=== PATIENT | female | born 1980 | race Caucasian/White ===

== ENCOUNTER 2017-03-19 14:09 | Emergency (ER) | payer OTHER ==
[~2017-03-19] VITALS: Ht 170.2 cm; Wt 85.3 kg
[~2017-03-19 14:09] MED LIST: BUTA1CAP29 PO; DIAZ2TAB PO; TRAZ100T12 PO
[2017-03-19 14:13] VITALS: BP 129/68
[2017-03-19 14:41] LABS: BILIRUBIN,URINE NEGATIVE (NEG); GLUCOSE,URINE 100 mg/dL (NEG); NITRITE,URINE NEGATIVE (NEG); PROTEIN,URINE 30 mg/dL (NEG-TRACE); UROBILINOGEN,URINE 0.2 mg/dL (0.2 mg/dL)
[2017-03-19 14:48] LABS: BACTERIA,URINE FEW /HPF (0-FEW); RBC,URINE 0 /HPF (0-2); SQUAMOUS EPITHELIAL CELL,UR MANY /LPF; WBC,URINE 0 /HPF (0-4)
[2017-03-19 14:56] LABS: OBC FLU VALID
[2017-03-19 14:58] LABS: NEGATIVE OBC STREP NEG; POSITIVE OBC STREP POS
--- NOTE | 2017-03-19 15:42 | PHYS DOC ---
Past Medical History Past Medical History: Migraines Past Surgical History: Appendectomy, Tonsillectomy, Other Additional Past Surgical Histo: D&C Additional Information: 3 cigarettes daily Alcohol Use: None Drug Use: None Adult General Chief Complaint Chief Complaint: FLU SYMPTOM HPI HPI Patient is a 36 year old female 7 para 6 who is currently 37 weeks and presents today for nasal congestion and itchy eyes and a sore throat that began 2 days ago. Patient states she was seen by the PEDIATRIC NP yesterday for the same. She states she was discharged with Zyrtec and Tylenol. She states it's not helping. Review of Systems Review of Systems Constitutional: Denies fever or chills [] Eyes: Itchy eyes HENT:nasal congestion Respiratory: Denies cough or shortness of breath [] Cardiovascular: No additional information not addressed in HPI [] GI: Denies abdominal pain, nausea, vomiting, bloody stools or diarrhea [] : Denies dysuria or hematuria [] Musculoskeletal: Denies back pain or joint pain [] Integument: Denies rash or skin lesions [] Neurologic: Denies headache, focal weakness or sensory changes [] Endocrine: Denies polyuria or polydipsia [] Allergies Allergies Allergies Coded Allergies Type Severity Reaction Last Updated Verified No Known Drug Allergies 12/10/13 No Physical Exam Physical Exam Constitutional: Well developed, well nourished, no acute distress, non-toxic appearance. [] HENT: Normocephalic, atraumatic, bilateral external ears normal, oropharynx moist, no oral exudates, nose normal. [] Eyes: PERRLA, EOMI, conjunctiva normal, no discharge. [] Neck: Normal range of motion, no tenderness, supple, no stridor. [] Cardiovascular:Heart rate regular rhythm, no murmur [] Lungs & Thorax: Bilateral breath sounds clear to auscultation [] Abdomen: Gravid abdomen. Bowel sounds normal, soft, no tenderness, no masses, no pulsatile masses. [] Skin: Warm, dry, no erythema, no rash. [] Back: No tenderness, no CVA tenderness. [] Extremities: No tenderness, no cyanosis, no clubbing, ROM intact, no edema. [] Neurologic: Alert and oriented X 3, normal motor function, normal sensory function, no focal deficits noted. [] Psychologic: Affect normal, judgement normal, mood normal. [] Current Patient Data Vital Signs Vital Signs Date Time Temp Pulse Resp B/P Pulse Ox O2 Delivery O2 Flow Rate FiO2 03/19/17 14:13 98.4 111 20 129/68 98 Room Air 98.4 Lab Values Laboratory Tests Test 03/19/17 14:20 03/19/17 14:26 Urine Collection Type Unknown Urine Color Yellow Urine Clarity Turbid Urine pH 6.0 Urine Specific Jewell 1.025 Urine Protein 30mg/dL (NEG-TRACE) Urine Glucose (UA) 100mg/dL (NEG) Urine Ketones (Stick) Negativemg/dL (NEG) Urine Blood Negative (NEG) Urine Nitrite Negative (NEG) Urine Bilirubin Negative (NEG) Urine Urobilinogen Dipstick 0.2mg/dL (0.2 mg/dL) Urine Leukocyte Esterase Trace (NEG) Urine RBC 0/HPF (0-2) Urine WBC 0/HPF (0-4) Urine Squamous Epithelial Cells Many/LPF Urine Bacteria Few/HPF (0-FEW) Group A Streptococcus Rapid Negative (NEGATIVE) Influenza Type A Antigen Negative (NEGATIVE) Influenza Type B Antigen Negative (NEGATIVE) EKG EKG [] Radiology/Procedures Radiology/Procedures [] Course & Med Decision Making Course & Med Decision Making Pertinent Labs and Imaging studies reviewed. (See chart for details) This is a 37 week female patient who presents today with symptoms consistent with upper respiratory infection as well as seasonal allergies. She was seen by the PEDIATRIC NP yesterday and was discharged with Zyrtec and Tylenol. She states her symptoms have not improved. Negative influenza A or B, negative rapid strep. Encouraged patient to continue using the Zyrtec and Tylenol. Humidifier recommended. Follow-up with primary care doctor or the PEDIATRIC NP in the next 3-7 days. Dragon Disclaimer Dragon Disclaimer This electronic medical record was generated, in whole or in part, using a voice recognition dictation system. Departure Departure Impression: Primary Impression: Seasonal allergies Additional Impression: Upper respiratory infection Disposition: HOME, SELF-CARE Condition: STABLE Referrals: MARIANGEL KNUTSON Jr, MD (PCP) Follow-up with the PEDIATRIC NP as soon as possible Patient Instructions: Allergic Rhinitis, Upper Respiratory Infection, Adult Additional Instructions: Please follow-up with your PEDIATRIC NP as soon as possible. Continue taking Zyrtec and Tylenol. Problem Qualifiers Primary Impression: Seasonal allergies Allergic rhinitis trigger: unspecified Qualified Code: J30.2 - Other seasonal allergic rhinitis Additional Impression: Upper respiratory infection URI type: unspecified URI Qualified Code: J06.9 - Acute upper respiratory infection, unspecified ALTON [employer] Mar 19, 2017 15:42
== END 2017-03-19 15:44 | disposition home or self-care (01) ==
LOC: ER 14:09
DX: O99.513 Diseases of the respiratory system complicating pregnancy, third trimester (principal); J30.2 Other seasonal allergic rhinitis; J06.9 Acute upper respiratory infection, unspecified; G43.909 Migraine, unspecified, not intractable, without status migrainosus; F17.210 Nicotine dependence, cigarettes, uncomplicated; H57.8 Other specified disorders of eye and adnexa; Z3A.37 37 weeks gestation of pregnancy
CPT/HCPCS: 81001; 87070; 87086; 87804; 87880; 99284

== ENCOUNTER 2017-03-23 20:09 | Observation (INO) | payer OTHER | END 2017-03-23 23:10 | disposition home or self-care (01) | LOC: 3 SO LND 20:09 | PROVIDERS: ADMIT Obstetrics & Gynecology; ATTEND Obstetrics & Gynecology | DX: O62.9 Abnormality of forces of labor, unspecified (principal); Z3A.37 37 weeks gestation of pregnancy | CPT/HCPCS: G0378; G0379 ==

== ENCOUNTER 2017-04-03 06:24 | Inpatient (IN) | payer OTHER ==
[~2017-04-03] VITALS: Ht 170.2 cm; Wt 86.3 kg
[2017-04-03] MEDS ORDERED: TERBUTALINE 1 MG/ML VIAL. SQ PRN (06:30)
[2017-04-03] MEDS ORDERED: LIDOCAINE 1% PF 30 ML VIAL. INJ PRN (06:30)
[2017-04-03] MEDS ORDERED: OXYTOCIN 30 UNIT/500 ML PREMIX 500 ML IV PRN ×3 (06:30→15:00)
[2017-04-03] MEDS ORDERED: fentaNYL PF VIAL 100 MCG/2 ML VIAL IV PRN (06:30)
[2017-04-03] MEDS ORDERED: IBUPROFEN 600 MG TABLET. PO PRN (06:30)
[2017-04-03] MEDS ORDERED: BUTORPHANOL 2 MG/ML VIAL. IV PRN (06:30)
[2017-04-03] MEDS ORDERED: 0.9 % SODIUM CHLORIDE 10 ML DISP.SYRIN. IV PRN ×2 (06:30→15:00)
[2017-04-03 06:47] VITALS: BP 108/61
[2017-04-03 07:04] LABS: BILIRUBIN,URINE NEGATIVE (NEG); GLUCOSE,URINE NEGATIVE (NEG); NITRITE,URINE NEGATIVE (NEG); PROTEIN,URINE NEGATIVE (NEG-TRACE); UROBILINOGEN,URINE 0.2 mg/dL (0.2 mg/dL)
[2017-04-03 07:18] LABS: BACTERIA,URINE MANY /HPF (0-FEW); RBC,URINE OCC /HPF (0-2); SQUAMOUS EPITHELIAL CELL,UR MANY /LPF
[2017-04-03 07:19] LABS: YEAST,URINE PRESENT /HPF
[2017-04-03] MEDS ORDERED: PENICILLIN G K 5,000,000 UNIT in IV NORMAL SALINE 100ML 100 ML IV ONE (07:30)
[2017-04-03] MEDS: IV RINGERS,LACTATED 1000ML 1,000 ML IV SCH ×2 (07:49→11:01)
[2017-04-03 08:27] LABS: BASO # 0.1 x10^3/uL (0.0-0.2); BASO % 1 % (0-3); EOS % 4 % (0-3); LYMPH # 3.1 x10^3/uL (1.0-4.8); LYMPH % 19 % (24-48); MEAN CORPUSCULAR HEMOGLOBIN 32 pg (25-35); MEAN CORPUSCULAR HGB CONC 33 g/dL (31-37); MEAN CORPUSCULAR VOLUME 96 fL (79-100); MONO % 9 % (0-9); NEUT % 68 % (31-73); PLATELET COUNT 408 x10^3/uL (140-400); RED BLOOD COUNT 3.75 x10^6/uL (3.50-5.40); RED CELL DISTRIBUTION WIDTH 13.7 % (11.5-14.5); WHITE BLOOD COUNT 16.3 x10^3/uL (4.0-11.0)
[2017-04-03] MEDS ORDERED: PENICILLIN G K 2,500,000 UNIT in IV NORMAL SALINE 50ML 50 ML IV SCH (11:30)
[2017-04-03] MEDS ORDERED: ROPIVacaine 0.2% IN 0.9%NACL PF 40 MG/20 ML DISP.SYRIN. ONE (11:38)
[2017-04-03] MEDS ORDERED: NALOXONE 0.4 MG/ML VIAL. IV PRN (11:45)
[2017-04-03] MEDS ORDERED: L&D EPIDURAL CASSETTE 100 ML EP PRN (11:45)
[2017-04-03] MEDS ORDERED: ONDANSETRON PF 4 MG/2 ML VIAL. IV PRN (11:45)
[2017-04-03] MEDS ORDERED: ROPIVacaine 0.2% IN 0.9%NACL PF 40 MG/20 ML DISP.SYRIN. EPI ONE (11:45)
[2017-04-03] MEDS ORDERED: fentaNYL PF VIAL 100 MCG/2 ML VIAL EPI ONE (11:45)
[2017-04-03] MEDS ORDERED: ePHEDrine PF IN SALINE 50 MG/5 ML DISP.SYRIN IV PRN (11:45)
--- NOTE | 2017-04-03 12:16 | PDOC1 ---
OB - History Hx of Present Care: Good Care Ultrasounds: Normal mid trimester US Obstetrical Complications: None Medical Complications: None Past Family/Social History * Past Medical, Surgical, Family and Obstetric Histories reviewed from chart. Rubella: Immune RPR/VDRL: Negative GBS Status: Positive HBsAG: Negative OB - Chief Complaint & HPI Date of Admission: Date of Admission: April 03, 2017 at 06:24 Chief Complaint/History : 7 Para: 5 EGA: 39 Reason for admission: induction of labor Indication for induction: maternal discomfort Admission Nurse Assessment Rev: Yes Problems: OB - Admission Exam Physical Exam Vitals: VS - Last 72 Hours, by Label Date Time Temp Pulse Resp B/P (MAP) Pulse Ox O2 Delivery O2 Flow Rate FiO2 04/03/17 12:09 18 99 Room Air 04/03/17 12:07 18 Room Air 04/03/17 06:47 108 20 108/61 (77) Room Air 04/03/17 06:42 98.4 98.4 HEENT: Normal Heart: Regular Rate Lungs: Clear Abdomen: Gravid, Non tender, Soft Extremities: Edema Reflexes: Normal Cervical Dilatation: 3cm Effacement: 75% Station: -3 Membranes: Intact Heart Rate: Normal Accelerations: Accelerations Present Decelerations: No decelerations Contractions on Admission: >10 Minutes Apart Intensity: Mild Text A: 39 wks IUP IOL secondary discomforts of Grand multip GBS positive P; Admit for labor induction with pitocin. Pen G for prophylaxis. MARIANGEL KNUTSON Jr, MD April 03, 2017 12:16
--- NOTE | 2017-04-03 14:46 | PDOC ---
VAGINAL DELIVERY DATE DATE: 04/03/17 TIME: 14:45 : 7 Para: 6 EGA: 39 VAGINAL DELIVERY: VTX VACCUM ASSISTED: No PLACENTA: Spontaneous 8/9 SEX: Female WEIGHT Weight [ 3375 gm] Nuchal Cord: Yes, Times 1 Amniotic Fluid: Clear PAIN: Epidural EPISIOTOMY: No EXTENSION: No EBL 400 ml COMPLICATIONS none CONDITION pt. stable Signs of Intrauterine Infectio: None Shoulder Dystocia: No Problems: MARIANGEL KNUTSON Jr, MD April 03, 2017 14:45
[2017-04-03] MEDS ORDERED: MAGNESIUM HYDROXIDE 2,400 MG/30 ML ORAL.SUSP. PO PRN (15:00)
[2017-04-03] MEDS ORDERED: oxyCODONE/APAP 5/325 1 TAB TABLET PO PRN (15:00)
[2017-04-03] MEDS ORDERED: diphenhydrAMINE HCL 25 MG CAPSULE PO PRN (15:00)
[2017-04-03] MEDS ORDERED: ZOLPIDEM 5 MG TABLET. PO PRN (15:00)
[2017-04-03] MEDS ORDERED: ACETAMINOPHEN 325 MG TABLET. PO PRN (15:00)
[2017-04-03] MEDS ORDERED: MMR per PROTOCOL. MC PRN (15:00)
[2017-04-03] MEDS ORDERED: MAG HYDROX/ALUMINUM HYD/SIMETH 30 ML ORAL.SUSP PO PRN (15:00)
[2017-04-03] MEDS ORDERED: BENZOCAINE 20% TOPICAL AEROSOL SPRAY 57GM CAN. TP PRN (15:00)
[2017-04-03] MEDS ORDERED: PHENYLEPH/MINERAL OIL/PETROLAT RECTAL OINTMENT 28GM TUBE. RC PRN (15:00)
[2017-04-03] MEDS ORDERED: SIMETHICONE 80 MG TAB.CHEW PO PRN (15:00)
[2017-04-03] MEDS ORDERED: HYDROCORTISONE 1% TOPICAL OINTMENT 30GM TUBE. TP PRN (15:00)
[2017-04-03 18:00] VITALS: BP 104/62
[2017-04-03] MEDS: IBUPROFEN 800 MG TABLET. PO PRN (19:23)
[2017-04-04 00:30] VITALS: BP 103/61
[2017-04-04 04:21] VITALS: BP 116/55
[2017-04-04 06:21] LABS: RPR REFLEX Non Reactive (Non Reactive)
[2017-04-04] MEDS: IBUPROFEN 800 MG TABLET. PO PRN ×2 (06:43→21:29)
[2017-04-04] MEDS ORDERED: FERROUS SULFATE 325 MG TABLET. PO SCH (08:00)
[2017-04-04 08:30] LABS: BASO % 0 % (0-3); EOS % 3 % (0-3); HEMATOCRIT 33.4 % (36.0-47.0); HEMOGLOBIN 10.8 g/dL (12.0-15.5); LYMPH # 2.8 x10^3/uL (1.0-4.8); LYMPH % 18 % (24-48); MEAN CORPUSCULAR HEMOGLOBIN 32 pg (25-35); MEAN CORPUSCULAR HGB CONC 32 g/dL (31-37); MEAN CORPUSCULAR VOLUME 98 fL (79-100); MONO % 9 % (0-9); NEUT % 70 % (31-73); PLATELET COUNT 362 x10^3/uL (140-400); RED BLOOD COUNT 3.41 x10^6/uL (3.50-5.40); RED CELL DISTRIBUTION WIDTH 13.6 % (11.5-14.5); WHITE BLOOD COUNT 15.3 x10^3/uL (4.0-11.0)
[2017-04-04 11:05] VITALS: BP 99/61
[2017-04-04 13:09] LABS: % BASOS 1 % (0-3); % EOS 2 % (0-5); PLT ESTIMATE ADEQUATE (ADEQUATE)
--- NOTE | 2017-04-04 16:28 | PDOC ---
OB Progress Note Date of Service 04/04/17 Time of Evaluation 1625 Notes Pt. feeling well. Lochia minimal. Pain controlled. Breast feeding. Lab Laboratory Tests Test 04/03/17 06:55 04/03/17 08:05 04/04/17 07:07 Urine Collection Type Unknown Urine Color Yellow Urine Clarity Clear Urine pH 7.0 Urine Specific Hinkle 1.010 Urine Protein Negative mg/dL (NEG-TRACE) Urine Glucose (UA) Negative mg/dL (NEG) Urine Ketones (Stick) Negative mg/dL (NEG) Urine Blood Negative (NEG) Urine Nitrite Negative (NEG) Urine Bilirubin Negative (NEG) Urine Urobilinogen Dipstick 0.2 mg/dL (0.2 mg/dL) Urine Leukocyte Esterase Moderate (NEG) Urine RBC Occ /HPF (0-2) Urine WBC 5-10 /HPF (0-4) Urine Squamous Epithelial Cells Many /LPF Urine Bacteria Many /HPF (0-FEW) Urine Yeast Present /HPF White Blood Count 16.3 x10^3/uL (4.0-11.0) 15.3 x10^3/uL (4.0-11.0) Red Blood Count 3.75 x10^6/uL (3.50-5.40) 3.41 x10^6/uL (3.50-5.40) Hemoglobin 12.0 g/dL (12.0-15.5) 10.8 g/dL (12.0-15.5) Hematocrit 36.0 % (36.0-47.0) 33.4 % (36.0-47.0) Mean Corpuscular Volume 96 fL (79-100) 98 fL (79-100) Mean Corpuscular Hemoglobin 32 pg (25-35) 32 pg (25-35) Mean Corpuscular Hemoglobin Concent 33 g/dL (31-37) 32 g/dL (31-37) Red Cell Distribution Width 13.7 % (11.5-14.5) 13.6 % (11.5-14.5) Platelet Count 408 x10^3/uL (140-400) 362 x10^3/uL (140-400) Neutrophils (%) (Auto) 68 % (31-73) 70 % (31-73) Lymphocytes (%) (Auto) 19 % (24-48) 18 % (24-48) Monocytes (%) (Auto) 9 % (0-9) 9 % (0-9) Eosinophils (%) (Auto) 4 % (0-3) 3 % (0-3) Basophils (%) (Auto) 1 % (0-3) 0 % (0-3) Neutrophils # (Auto) 11.0 x10^3uL (1.8-7.7) 10.7 x10^3uL (1.8-7.7) Lymphocytes # (Auto) 3.1 x10^3/uL (1.0-4.8) 2.8 x10^3/uL (1.0-4.8) Monocytes # (Auto) 1.4 x10^3/uL (0.0-1.1) 1.4 x10^3/uL (0.0-1.1) Eosinophils # (Auto) 0.6 x10^3/uL (0.0-0.7) 0.4 x10^3/uL (0.0-0.7) Basophils # (Auto) 0.1 x10^3/uL (0.0-0.2) 0.0 x10^3/uL (0.0-0.2) RPR Titer Additional Testing Non reactive (Non Reactive) Segmented Neutrophils % 70 % (35-66) Band Neutrophils % 2 % (0-9) Lymphocytes % 20 % (24-48) Monocytes % 5 % (0-10) Eosinophils % 2 % (0-5) Basophils % 1 % (0-3) Platelet Estimate Adequate (ADEQUATE) Laboratory Tests Test 04/04/17 07:07 White Blood Count 15.3 x10^3/uL (4.0-11.0) Red Blood Count 3.41 x10^6/uL (3.50-5.40) Hemoglobin 10.8 g/dL (12.0-15.5) Hematocrit 33.4 % (36.0-47.0) Mean Corpuscular Volume 98 fL (79-100) Mean Corpuscular Hemoglobin 32 pg (25-35) Mean Corpuscular Hemoglobin Concent 32 g/dL (31-37) Red Cell Distribution Width 13.6 % (11.5-14.5) Platelet Count 362 x10^3/uL (140-400) Neutrophils (%) (Auto) 70 % (31-73) Lymphocytes (%) (Auto) 18 % (24-48) Monocytes (%) (Auto) 9 % (0-9) Eosinophils (%) (Auto) 3 % (0-3) Basophils (%) (Auto) 0 % (0-3) Neutrophils # (Auto) 10.7 x10^3uL (1.8-7.7) Lymphocytes # (Auto) 2.8 x10^3/uL (1.0-4.8) Monocytes # (Auto) 1.4 x10^3/uL (0.0-1.1) Eosinophils # (Auto) 0.4 x10^3/uL (0.0-0.7) Basophils # (Auto) 0.0 x10^3/uL (0.0-0.2) Segmented Neutrophils % 70 % (35-66) Band Neutrophils % 2 % (0-9) Lymphocytes % 20 % (24-48) Monocytes % 5 % (0-10) Eosinophils % 2 % (0-5) Basophils % 1 % (0-3) Platelet Estimate Adequate (ADEQUATE) Medications Current Medications Sodium Chloride (Normal Saline Flush) 3 ml QSHIFT PRN IV AFTER MEDS AND BLOOD DRAWS; Start 04/03/17 at 06:30 Ringer's Solution 1,000 ml @ 125 mls/hr Q8H IV Last administered on 04/03/17 11:01; Start 04/03/17 at 06:29 Butorphanol Tartrate (Stadol) 2 mg PRN Q1HR PRN IV Severe labor pain; Start 09/10 at 06:30 Fentanyl Citrate (Fentanyl 2ml Vial) 100 mcg PRN Q10MIN PRN IV Labor pain; Start 04/03/17 at 06:30 Terbutaline Sulfate (Brethine) 0.25 mg 1X PRN PRN SQ SEE COMMENTS; Start at 06:30; Stop 04/04/17 at 06:29; Status DC Lidocaine HCl 30 ml 1X PRN PRN INJ SEE COMMENTS; Start 04/03/17 at 06:30; Stop 04/05/17 at 06:29 Oxytocin/Sodium Chloride 500 ml @ 0 mls/hr CONT PRN IV SEE I/O RECORD Last administered on 04/03/17 07:50; Start 04/03/17 at 07:30 Oxytocin/Sodium Chloride 500 ml @ 0 mls/hr CONT PRN PRN IV Post delivery bleeding; Start 04/03/17 at 06:30 Ibuprofen (Motrin) 600 mg PRN Q6HRS PRN PO PAIN Last administered on 04/04/17 13:59; Start 04/03/17 at 06:30 Penicillin G Potassium [id number] unit/Sodium Chloride 100 ml @ 100 mls/hr 1X ONCE IV Last administered on 04/03/17 07:49; Start 04/03/17 at 07:30; Stop 09/10 at 08:29; Status DC Penicillin G Potassium [id number] unit/Sodium Chloride 50 ml @ 100 mls/hr Q4H IV Last administered on 04/03/17 12:09; Start 04/03/17 at 11:30 Ephedrine Sulfate 10 mg PRN Q2MIN PRN IV IF SBP<90; Start 04/03/17 at 11:45 Naloxone HCl (Narcan) 0.04 mg PRN Q1MIN PRN IV SEE COMMENTS; Start 04/03/17 at 11:45 Fentanyl Citrate (Fentanyl 2ml Vial) 100 mcg 1X ONCE EPI Last administered on 04/03/17 12:07; Start 04/03/17 at 11:45; Stop 04/03/17 at 11:46; Status DC Ropivacaine/ Fentanyl/NS 100 ml @ 14 mls/hr CONT PRN EP PAIN Last administered on 04/03/17 12:09; Start 04/03/17 at 11:45 Ondansetron HCl (Zofran) 4 mg PRN Q6HRS PRN IV NAUSEA/VOMITING; Start 04/03/17 at 11:45 Ropivacaine 20 mg 1X ONCE EPI Last administered on 04/03/17 12:08; Start 09/10 at 11:45; Stop 04/03/17 at 11:46; Status DC Ropivacaine 40 mg STK-MED ONCE .ROUTE ; Start 04/03/17 at 11:38; Stop 04/03/17 at 11:39; Status DC Sodium Chloride (Normal Saline Flush) 10 ml QSHIFT PRN IV AFTER MEDS AND BLOOD DRAWS; Start 04/03/17 at 15:00 Oxytocin/Sodium Chloride 500 ml @ 62.5 mls/hr CONT PRN IV SEE I/O RECORD; Start 04/03/17 at 15:00; Stop 04/03/17 at 22:59; Status DC Acetaminophen (Tylenol) 650 mg PRN Q6HRS PRN PO MILD PAIN / TEMP; Start at 15:00 Ibuprofen (Motrin) 800 mg PRN Q8HRS PRN PO INFLAMMATION/PAIN PREVENTION Last administered on 04/04/17t 06:43; Start 04/03/17 at 15:00 Docusate Sodium (Colace) 100 mg PRN BID PRN PO CONSTIPATION; Start 04/03/17 at 15:00 Magnesium Hydroxide (Milk Of Magnesia) 2,400 mg PRN DAILY PRN PO CONSTIPATION; Start 04/03/17 at 15:00 Al Hydroxide/Mg Hydroxide (Mylanta Plus Xs) 30 ml PRN Q4HRS PRN PO HEARTBURN / GAS; Start 04/03/17 at 15:00 Simethicone (Gas-X) 80 mg PRN AFTMEALHC PRN PO GAS / BLOATING; Start 04/03/17 at 15:00 Diphenhydramine HCl (Benadryl) 25 mg PRN Q6HRS PRN PO ITCHING; Start 04/03/17 at 15:00 Benzocaine (Americaine) 1 spray PRN QID PRN TP TOPICAL PAIN; Start 04/03/17 at 15:00 Phenyleph/Shark Oil/Min Oil/Petrol (Preparation H) 1 jesús PRN QID PRN RC RECTAL PAIN; Start 04/03/17 at 15:00 Hydrocortisone (Cortaid) 1 jesús PRN QID PRN TP PERINEAL PAIN; Start 04/03/17 at 15:00 Ferrous Sulfate (Feosol) 325 mg BIDWMEALS PO ; Start 04/04/17 at 08:00 Zolpidem Tartrate (Ambien) 5 mg PRN QHS PRN PO INSOMNIA, MAY REPEAT X1; Start 04/03/17 at 15:00 Info (Do NOT chart on this placeholder) 1 ea 1X PRN PRN MC SEE COMMENTS; Start 04/03/17 at 15:00 Info (Do NOT chart on this placeholder) 1 ea 1X PRN PRN MC SEE COMMENTS; Start 04/03/17 at 15:00 Oxycodone/ Acetaminophen (Percocet 5/325) 2 tab PRN Q4HRS PRN PO MODERATE PAIN , SEVERE PAIN; Start 04/03/17 at 15:00 Active Scripts Active Reported Valium (Diazepam) 2 Mg Tablet 2 Mg PO Trazodone Hcl 100 Mg Tablet 100 Mg PO Fioricet 50-300-40 Mg Capsule (Butalb/Acetaminophen/Caffeine) 1 Each Capsule 1 Each PO Exam Abd: soft, non tender, fundus firm Assessment PPD#1 s/p Plan of Care: Continue current Tx, Mgmt MARIANGEL KNUTSON Jr, MD April 04, 2017 16:28
[2017-04-04 17:55] VITALS: BP 115/70
[2017-04-04] MEDS: DOCUSATE SODIUM 100 MG CAPSULE. PO PRN (21:29)
[2017-04-04 23:06] VITALS: BP 111/68
[2017-04-05] MEDS: IBUPROFEN 800 MG TABLET. PO PRN (05:31)
[2017-04-05 05:33] VITALS: BP 107/69
[2017-04-05] MEDS ORDERED: DIPHTH,PERTUSS(ACELL),TET TOX 0.5 ML DISP.SYRIN. VAX IM ONE (09:00)
[2017-04-05 10:20] VITALS: BP 109/68
[2017-04-05] MEDS: DOCUSATE SODIUM 100 MG CAPSULE. PO PRN (11:33)
--- NOTE | 2017-04-05 13:11 | PDOC ---
OB Progress Note Date of Service 04/05/17 Time of Evaluation 1310 Notes Pt. feeling well. No complaints. Lab Laboratory Tests Test 04/04/17 07:07 White Blood Count 15.3 x10^3/uL (4.0-11.0) Red Blood Count 3.41 x10^6/uL (3.50-5.40) Hemoglobin 10.8 g/dL (12.0-15.5) Hematocrit 33.4 % (36.0-47.0) Mean Corpuscular Volume 98 fL (79-100) Mean Corpuscular Hemoglobin 32 pg (25-35) Mean Corpuscular Hemoglobin Concent 32 g/dL (31-37) Red Cell Distribution Width 13.6 % (11.5-14.5) Platelet Count 362 x10^3/uL (140-400) Neutrophils (%) (Auto) 70 % (31-73) Lymphocytes (%) (Auto) 18 % (24-48) Monocytes (%) (Auto) 9 % (0-9) Eosinophils (%) (Auto) 3 % (0-3) Basophils (%) (Auto) 0 % (0-3) Neutrophils # (Auto) 10.7 x10^3uL (1.8-7.7) Lymphocytes # (Auto) 2.8 x10^3/uL (1.0-4.8) Monocytes # (Auto) 1.4 x10^3/uL (0.0-1.1) Eosinophils # (Auto) 0.4 x10^3/uL (0.0-0.7) Basophils # (Auto) 0.0 x10^3/uL (0.0-0.2) Segmented Neutrophils % 70 % (35-66) Band Neutrophils % 2 % (0-9) Lymphocytes % 20 % (24-48) Monocytes % 5 % (0-10) Eosinophils % 2 % (0-5) Basophils % 1 % (0-3) Platelet Estimate Adequate (ADEQUATE) Medications Current Medications Sodium Chloride (Normal Saline Flush) 3 ml QSHIFT PRN IV AFTER MEDS AND BLOOD DRAWS; Start 04/03/17 at 06:30; Stop 04/05/17 at 08:44; Status DC Ringer's Solution 1,000 ml @ 125 mls/hr Q8H IV Last administered on 04/03/17 11:01; Start 04/03/17 at 06:29; Stop 04/05/17 at 08:44; Status DC Butorphanol Tartrate (Stadol) 2 mg PRN Q1HR PRN IV Severe labor pain; Start 09/10 at 06:30; Stop 04/05/17 at 08:44; Status DC Fentanyl Citrate (Fentanyl 2ml Vial) 100 mcg PRN Q10MIN PRN IV Labor pain; Start 04/03/17 at 06:30 Terbutaline Sulfate (Brethine) 0.25 mg 1X PRN PRN SQ SEE COMMENTS; Start at 06:30; Stop 04/04/17 at 06:29; Status DC Lidocaine HCl 30 ml 1X PRN PRN INJ SEE COMMENTS; Start 04/03/17 at 06:30; Stop 04/05/17 at 06:29; Status DC Oxytocin/Sodium Chloride 500 ml @ 0 mls/hr CONT PRN IV SEE I/O RECORD Last administered on 04/03/17 07:50; Start 04/03/17 at 07:30; Stop 04/05/17 at 08:44 ; Status DC Oxytocin/Sodium Chloride 500 ml @ 0 mls/hr CONT PRN PRN IV Post delivery bleeding; Start 04/03/17 at 06:30; Stop 04/05/17 at 08:44; Status DC Ibuprofen (Motrin) 600 mg PRN Q6HRS PRN PO PAIN Last administered on 04/04/17 13:59; Start 04/03/17 at 06:30 Penicillin G Potassium [id number] unit/Sodium Chloride 100 ml @ 100 mls/hr 1X ONCE IV Last administered on 04/03/17 07:49; Start 04/03/17 at 07:30; Stop 09/10 at 08:29; Status DC Penicillin G Potassium [id number] unit/Sodium Chloride 50 ml @ 100 mls/hr Q4H IV Last administered on 04/03/17 12:09; Start 04/03/17 at 11:30; Stop 04/05/17 at 08:44; Status DC Ephedrine Sulfate 10 mg PRN Q2MIN PRN IV IF SBP<90; Start 04/03/17 at 11:45 Naloxone HCl (Narcan) 0.04 mg PRN Q1MIN PRN IV SEE COMMENTS; Start 04/03/17 at 11:45 Fentanyl Citrate (Fentanyl 2ml Vial) 100 mcg 1X ONCE EPI Last administered on 04/03/17 12:07; Start 04/03/17 at 11:45; Stop 04/03/17 at 11:46; Status DC Ropivacaine/ Fentanyl/NS 100 ml @ 14 mls/hr CONT PRN EP PAIN Last administered on 04/03/17 12:09; Start 04/03/17 at 11:45; Stop 04/05/17 at 08:44 ; Status DC Ondansetron HCl (Zofran) 4 mg PRN Q6HRS PRN IV NAUSEA/VOMITING; Start 04/03/17 at 11:45 Ropivacaine 20 mg 1X ONCE EPI Last administered on 04/03/17 12:08; Start 09/10 at 11:45; Stop 04/03/17 at 11:46; Status DC Ropivacaine 40 mg STK-MED ONCE .ROUTE ; Start 04/03/17 at 11:38; Stop 04/03/17 at 11:39; Status DC Sodium Chloride (Normal Saline Flush) 10 ml QSHIFT PRN IV AFTER MEDS AND BLOOD DRAWS; Start 04/03/17 at 15:00; Stop 04/05/17 at 08:44; Status DC Oxytocin/Sodium Chloride 500 ml @ 62.5 mls/hr CONT PRN IV SEE I/O RECORD; Start 04/03/17 at 15:00; Stop 04/03/17 at 22:59; Status DC Acetaminophen (Tylenol) 650 mg PRN Q6HRS PRN PO MILD PAIN / TEMP; Start at 15:00 Ibuprofen (Motrin) 800 mg PRN Q8HRS PRN PO INFLAMMATION/PAIN PREVENTION Last administered on 04/05/17 05:31; Start 04/03/17 at 15:00 Docusate Sodium (Colace) 100 mg PRN BID PRN PO CONSTIPATION Last administered on 04/05/17 11:33; Start 04/03/17 at 15:00 Magnesium Hydroxide (Milk Of Magnesia) 2,400 mg PRN DAILY PRN PO CONSTIPATION; Start 04/03/17 at 15:00 Al Hydroxide/Mg Hydroxide (Mylanta Plus Xs) 30 ml PRN Q4HRS PRN PO HEARTBURN / GAS; Start 04/03/17 at 15:00 Simethicone (Gas-X) 80 mg PRN AFTMEALHC PRN PO GAS / BLOATING; Start 04/03/17 at 15:00 Diphenhydramine HCl (Benadryl) 25 mg PRN Q6HRS PRN PO ITCHING; Start 04/03/17 at 15:00 Benzocaine (Americaine) 1 spray PRN QID PRN TP TOPICAL PAIN; Start 04/03/17 at 15:00 Phenyleph/Shark Oil/Min Oil/Petrol (Preparation H) 1 jesús PRN QID PRN RC RECTAL PAIN; Start 04/03/17 at 15:00 Hydrocortisone (Cortaid) 1 jesús PRN QID PRN TP PERINEAL PAIN; Start 04/03/17 at 15:00 Ferrous Sulfate (Feosol) 325 mg BIDWMEALS PO ; Start 04/04/17 at 08:00; Stop 10/11 at 19:22; Status DC Zolpidem Tartrate (Ambien) 5 mg PRN QHS PRN PO INSOMNIA, MAY REPEAT X1; Start 04/03/17 at 15:00 Info (Do NOT chart on this placeholder) 1 ea 1X PRN PRN MC SEE COMMENTS; Start 04/03/17 at 15:00 Info (Do NOT chart on this placeholder) 1 ea 1X PRN PRN MC SEE COMMENTS; Start 04/03/17 at 15:00 Oxycodone/ Acetaminophen (Percocet 5/325) 2 tab PRN Q4HRS PRN PO MODERATE PAIN , SEVERE PAIN; Start 04/03/17 at 15:00 Diphtheria/ Tetanus/Acell Pertussis (Boostrix) 0.5 ml ONCE ONCE VAX IM Last administered on 04/05/17t 11:33; Start 04/05/17 at 09:00; Stop 04/05/17 at 09:01 ; Status DC Active Scripts Active Reported Valium (Diazepam) 2 Mg Tablet 2 Mg PO Trazodone Hcl 100 Mg Tablet 100 Mg PO Fioricet 50-300-40 Mg Capsule (Butalb/Acetaminophen/Caffeine) 1 Each Capsule 1 Each PO Exam Abd: soft, non tender, fundus firm Assessment PPD#2 s/p Plan of Care: See new orders (D/c home.) MARIANGEL KNUTSON Jr, MD April 05, 2017 13:11
--- NOTE | 2017-04-05 13:13 | DISCH ---
DISCHARGE INSTRUCTIONS Condition on Discharge Condition on Discharge: Stable Activity After Discharge Activity Instructions for Disc: Activity as tolerated Driving Instructions after Dis: Do not drive today Diet after Discharge Diet after Discharge: Regular Contacting the DRArron after DC Call your doctor for: Concerns you may have Follow-Up Follow up with: Dr. Vallejo in 6 weeks. MARIANGEL VALLEJO Jr, MD April 05, 2017 13:13
[2017-04-05] MEDS ORDERED: HYDR-971 PO (13:14)
[2017-04-05] MEDS ORDERED: IBUP-1060 PO (13:14)
[2017-04-05 14:39] VITALS: BP 97/67
== END 2017-04-05 15:26 | disposition home or self-care (01) | DRG 775 ==
LOC: 3 SO LND 06:24
PROVIDERS: ADMIT Obstetrics & Gynecology; ATTEND Obstetrics & Gynecology
PROC: 10E0XZZ Delivery of Products of Conception, External Approach (ICD-10-PCS; principal; 2017-04-03)
PROC: 3E0S3CZ (ICD-10-PCS; 2017-04-03)
PROC: 00HU33Z Insertion of Infusion Device into Spinal Canal, Percutaneous Approach (ICD-10-PCS; 2017-04-03)
DX: O69.81X0 Labor and delivery complicated by cord around neck, without compression, not applicable or unspecified (principal); O99.824 Streptococcus B carrier state complicating childbirth; Z3A.39 39 weeks gestation of pregnancy; Z37.0 Single live birth; O09.43 Supervision of pregnancy with grand multiparity, third trimester
CPT/HCPCS: 36415; 81001; 85007; 85027; 86593; 86850; 86900; 86901; 87086; 90715; J2540; J2590; J2795; J3010; J7120

== ENCOUNTER 2017-05-03 16:03 | Emergency (ER) | payer OTHER ==
[~2017-05-03] VITALS: Ht 170.2 cm; Wt 74.8 kg
[~2017-05-03 16:03] MED LIST changes: +HYDR-971 PO; +IBUP-1060 PO
[2017-05-03 16:20] VITALS: BP 107/72
[2017-05-03] MEDS ORDERED: CLIN150C14 PO (16:28)
--- NOTE | 2017-05-03 16:29 | PHYS DOC ---
Past Medical History Past Medical History: Migraines Past Surgical History: Appendectomy, Tonsillectomy, Other Additional Past Surgical Histo: D&C Alcohol Use: None Drug Use: None Adult General Chief Complaint Chief Complaint: INSECT BITE HPI HPI Patient is a 36 year old female presents to the emergency department with a history of bite to the right upper inner arm and bite to the left lower jaw line. Both areas appear pink in color. The inner arm has a red streak noted. Patient denies drainage or discharge from the sites. Patients tetanus is up to date as she had a new born. She denies breast feeding. Review of Systems Review of Systems Constitutional: Denies fever or chills [] Eyes: Denies change in visual acuity, redness, or eye pain [] HENT: Denies nasal congestion or sore throat [] Respiratory: Denies cough or shortness of breath [] Cardiovascular: No additional information not addressed in HPI [] GI: Denies abdominal pain, nausea, vomiting, bloody stools or diarrhea [] : Denies dysuria or hematuria [] Musculoskeletal: Denies back pain or joint pain [] Integument: Denies rash or skin lesions. Bite areas to the right inner upper arm , bite tot he left lower jaw line. Neurologic: Denies headache, focal weakness or sensory changes [] Endocrine: Denies polyuria or polydipsia [] Allergies Allergies Allergies Coded Allergies Type Severity Reaction Last Updated Verified No Known Drug Allergies 04/03/17 No Physical Exam Physical Exam Constitutional: Well developed, well nourished, no acute distress, non-toxic appearance. [] HENT: Normocephalic, atraumatic, bilateral external ears normal, oropharynx moist, no oral exudates, nose normal. [] Eyes: PERRLA, EOMI, conjunctiva normal, no discharge. [] Neck: Normal range of motion, no tenderness, supple, no stridor. [] Cardiovascular:Heart rate regular rhythm, no murmur [] Lungs & Thorax: Bilateral breath sounds clear to auscultation [] Skin: Warm, dry, no erythema, no rash. Left lower jaw line with area that is pink in color no drainage or discharge noted. Patient with area to the right upper inner arm pink with pink line streaking up the arm, no drainage or discharge noted. Back: No tenderness Extremities: No tenderness, no cyanosis, no clubbing, ROM intact, no edema. [] Neurologic: Alert and oriented X 3, normal motor function, normal sensory function, no focal deficits noted. [] Psychologic: Affect normal, judgement normal, mood normal. [] EKG EKG [] Radiology/Procedures Radiology/Procedures [] Course & Med Decision Making Course & Med Decision Making Pertinent Labs and Imaging studies reviewed. (See chart for details) Patient will be discharge home in stable condition with recommendation for Tylenol or Ibuprofen for pain and discomfort. Recommended clindamycin for the infection. Signs and symptoms to return to the emergency department has been provided. Patient was recommended to followup with primary care provider in 5-7 days. Warm moist packs to the area several times a day. Patient agrees with discharge instructions, treatment regimen and followup recommendations. [] Dragon Disclaimer Dragon Disclaimer This electronic medical record was generated, in whole or in part, using a voice recognition dictation system. Departure Departure Impression: Primary Impression: Insect bite Disposition: 01 HOME, SELF-CARE Condition: STABLE Referrals: MARIANGEL KNUTSON Jr, MD (PCP) Patient Instructions: Insect Bite, [id number] Additional Instructions: Activity as tolerated Medication as prescribed Tylenol or Ibuprofen for pain and discomfort Warm moist packs to the areas several times a day Followup with primary care provider in 5-7 days Return to emergency department as needed for signs and symptoms that become worse. Scripts Clindamycin Hcl (CLINDAMYCIN HCL) 150 Mg Capsule 3 CAP PO TID for 10 Days, CAP Prov: GAGAN TRUJILLO APRN 05/03/17 GAGAN TRUJILLO APRN May 03, 2017 16:28
== END 2017-05-03 16:41 | disposition home or self-care (01) ==
LOC: ER 16:03
DX: S40.861A Insect bite (nonvenomous) of right upper arm, initial encounter (principal); S00.86XA Insect bite (nonvenomous) of other part of head, initial encounter; G43.909 Migraine, unspecified, not intractable, without status migrainosus; Z90.49 Acquired absence of other specified parts of digestive tract; Z90.89 Acquired absence of other organs; W57.XXXA Bitten or stung by nonvenomous insect and other nonvenomous arthropods, initial encounter; Y93.89 Activity, other specified; Y92.89 Other specified places as the place of occurrence of the external cause; Y99.8 Other external cause status
CPT/HCPCS: 99283

== ENCOUNTER → 2018-03-07 | Outpatient (CLI) | payer OTHER | END | disposition home or self-care (01) | LOC: US 14:55 | DX: O26.842 Uterine size-date discrepancy, second trimester (principal); Z3A.16 16 weeks gestation of pregnancy; Z20.2 Contact with and (suspected) exposure to infections with a predominantly sexual mode of transmission | CPT/HCPCS: 76805 ==

== ENCOUNTER → 2018-05-30 | Outpatient (CLI) | payer OTHER ==
[2018-05-30 10:33] LABS: ADD MAN DIFF? NO
[2018-05-30 10:37] LABS: BASO % 0 % (0-3); EOS # 0.2 x10^3/uL (0.0-0.7); EOS % 2 % (0-3); HEMATOCRIT 33.3 % (36.0-47.0); HEMOGLOBIN 11.2 g/dL (12.0-15.5); LYMPH # 2.1 x10^3/uL (1.0-4.8); LYMPH % 19 % (24-48); MEAN CORPUSCULAR HEMOGLOBIN 31 pg (25-35); MEAN CORPUSCULAR HGB CONC 34 g/dL (31-37); MEAN CORPUSCULAR VOLUME 92 fL (79-100); MONO # 0.7 x10^3/uL (0.0-1.1); MONO % 7 % (0-9); NEUT # 8.1 x10^3uL (1.8-7.7); NEUT % 73 % (31-73); PLATELET COUNT 371 x10^3/uL (140-400); RED BLOOD COUNT 3.62 x10^6/uL (3.50-5.40)
== END | disposition home or self-care (01) ==
LOC: LAB 10:15
DX: O09.92 Supervision of high risk pregnancy, unspecified, second trimester (principal); Z3A.24 24 weeks gestation of pregnancy
CPT/HCPCS: 36415; 82950; 85025

== ENCOUNTER 2018-06-17 05:48 | Inpatient (IN) | payer OTHER ==
[2018-06-17] MEDS ORDERED: OXYTOCIN PREMIX 30 UNIT/500 ML BAG. IV (06:00)
[2018-06-17] MEDS ORDERED: IV RINGERS,LACTATED 1000ML 1,000 ML IV (06:11)
[2018-06-17] MEDS ORDERED: LIDOCAINE 1% PF 30 ML VIAL. (06:14)
[2018-06-17] MEDS ORDERED: OXYTOCIN 30 UNIT/500 ML PREMIX 500 ML IV ×4 (06:14→06:45)
[2018-06-17] MEDS ORDERED: BUTORPHANOL 2 MG/ML VIAL. IV (06:15)
[2018-06-17] MEDS ORDERED: IBUPROFEN 800 MG TABLET. PO (06:15)
[2018-06-17] MEDS ORDERED: 0.9 % SODIUM CHLORIDE 10 ML DISP.SYRIN. IV ×2 (06:15→06:45)
[2018-06-17] MEDS ORDERED: ONDANSETRON PF 4 MG/2 ML VIAL. IV (06:15)
[2018-06-17] MEDS ORDERED: TERBUTALINE 1 MG/ML VIAL. SQ (06:15)
[2018-06-17] MEDS ORDERED: LIDOCAINE 1% PF 30 ML VIAL. INJ (06:15)
[2018-06-17] MEDS ORDERED: fentaNYL PF VIAL 100 MCG/2 ML VIAL (06:18)
[2018-06-17 06:34] LABS: ADD MAN DIFF? NO
[2018-06-17 06:35] LABS: BARBITURATES POS (NEG); BENZODIAZEPINES NEG (NEG); CANNABINOIDS NEG (NEG); COCAINE NEG (NEG); METHADONE NEG (NEG); OPIATES NEG (NEG); PHENCYCLIDINE NEG (NEG)
[2018-06-17 06:37] LABS: BASO # 0.1 x10^3/uL (0.0-0.2); BASO % 1 % (0-3); EOS # 0.2 x10^3/uL (0.0-0.7); EOS % 1 % (0-3); HEMOGLOBIN 11.6 g/dL (12.0-15.5); LYMPH % 15 % (24-48); MEAN CORPUSCULAR HEMOGLOBIN 30 pg (25-35); MEAN CORPUSCULAR HGB CONC 33 g/dL (31-37); MEAN CORPUSCULAR VOLUME 91 fL (79-100); MONO # 1.3 x10^3/uL (0.0-1.1); MONO % 7 % (0-9); NEUT # 15.2 x10^3uL (1.8-7.7); NEUT % 77 % (31-73); PLATELET COUNT 333 x10^3/uL (140-400); RED BLOOD COUNT 3.87 x10^6/uL (3.50-5.40); WHITE BLOOD COUNT 19.9 x10^3/uL (4.0-11.0)
[2018-06-17 06:38] LABS: AMPHETAMINE/METHAMPHETAMINE NEG (NEG); ETHANOL, URINE NEG (NEG)
[2018-06-17] MEDS ORDERED: SIMETHICONE 80 MG TAB.CHEW PO (06:45)
[2018-06-17] MEDS ORDERED: BENZOCAINE 20% TOPICAL AEROSOL SPRAY 57GM CAN. TP (06:45)
[2018-06-17] MEDS ORDERED: ZOLPIDEM 5 MG TABLET. PO (06:45)
[2018-06-17] MEDS ORDERED: HYDROCORTISONE 1% TOPICAL OINTMENT 30GM TUBE. TP (06:45)
[2018-06-17] MEDS ORDERED: PHENYLEPH/MINERAL OIL/PETROLAT RECTAL OINTMENT 28GM TUBE. RC (06:45)
[2018-06-17] MEDS ORDERED: diphenhydrAMINE HCL 25 MG CAPSULE PO (06:45)
[2018-06-17] MEDS ORDERED: MAG HYDROX/ALUMINUM HYD/SIMETH 30 ML ORAL.SUSP PO (06:45)
[2018-06-17] MEDS ORDERED: ACETAMINOPHEN 325 MG TABLET. PO (06:45)
[2018-06-17] MEDS ORDERED: fentaNYL PF VIAL 100 MCG/2 ML VIAL IV (07:30)
[2018-06-17] MEDS ORDERED: FERROUS SULFATE 325 MG TABLET. PO (08:00)
[2018-06-17] MEDS: IBUPROFEN 800 MG TABLET. PO (19:30)
[2018-06-18 04:08] LABS: HEMATOCRIT 29.4 % (36.0-47.0)
[2018-06-18] MEDS: IBUPROFEN 800 MG TABLET. PO (09:52)
[2018-06-18] MEDS: MAGNESIUM HYDROXIDE 2,400 MG/30 ML ORAL.SUSP. PO (09:52)
[2018-06-18] MEDS: DIPHTH,PERTUSS(ACELL),TET TOX 0.5 ML DISP.SYRIN. VAX IM (09:56)
== END 2018-06-18 18:00 | disposition home or self-care (01) | DRG 774 ==
LOC: 3 SO LND 05:48 → 3 NORTH 06-18 14:43
PROC: 10E0XZZ Delivery of Products of Conception, External Approach (ICD-10-PCS; principal; 2018-06-17)
DX: O45.93 Premature separation of placenta, unspecified, third trimester (principal); O60.14X0 Preterm labor third trimester with preterm delivery third trimester, not applicable or unspecified; Z3A.30 30 weeks gestation of pregnancy; Z37.0 Single live birth
CPT/HCPCS: 36415; 80307; 85014; 85025; 86592; 86850; 86900; 86901; 88307; 90715; J2590